=== PATIENT | male | born 1980 | race Caucasian/White ===

== ENCOUNTER 2020-12-04 16:46 | Emergency (ER) | payer OTHER ==
[~2020-12-04 16:46] MED LIST: ATIVAN1 MG PO; NAPROXEN500 MG PO; ZOLOFT100 MG PO
[2020-12-04 20:45] LABS: BASOPHIL 1.6 % (0-2); EOSINOPHIL 8.3 % (0-5); HCT 47.9 % (42.0-52.0); HGB 16.7 g/dl (13.2-18.0); MCH 34.4 pg (25.0-31.0); MCHC 34.9 g/dL (32.0-36.0); MCV 98.6 fL (78.0-100.0); MONOCYTE 4.8 % (0-12); MPV 8.9 fL (6.0-9.5); NEUTROPHIL 51.1 % (41-80); NRBC 0; PLT 332 K/uL (150-400); RBC 4.86 M/uL (4.70-6.00); RDW 11.9 % (11.5-14.0); WBC 6.4 K/uL (4.0-10.5)
[2020-12-04 20:52] LABS: MONOSPOT (MONONUCLEOSIS) NEGATIVE (NEGATIVE)
[2020-12-04 21:11] LABS: ALBUMIN 4.2 g/dL (3.4-5.0); BILIRUBIN - TOTAL 0.2 mg/dL (0.2-1.0); BUN/CREAT RATIO (CALC) 11.1 RATIO; CREATININE 0.81 mg/dL (0.67-1.17); GLOBULIN (CALCULATION) 3.5 g/dL; POTASSIUM 3.9 mmol/L (3.5-5.1); TOTAL PROTEIN 7.7 g/dL (6.4-8.2)
[2020-12-04 21:22] LABS: CORONAVIRUS 2019 SARS-COV-2 NEGATIVE (NEGATIVE); INFLUENZA A NAA NEGATIVE (NEGATIVE)
== END 2020-12-04 22:10 | disposition home or self-care (01) ==
LOC: FER 16:46
PROVIDERS: Emergency Medicine Emergency Medical Services
DX: B34.9 Viral infection, unspecified (principal); R74.01 Elevation of levels of liver transaminase levels; I49.9 Cardiac arrhythmia, unspecified; J45.909 Unspecified asthma, uncomplicated; F17.210 Nicotine dependence, cigarettes, uncomplicated; Z20.822 Contact with and (suspected) exposure to COVID-19
CPT/HCPCS: 36415; 71045; 80053; 84443; 84484; 85025; 86308; 87880; 93005; 94640; 94664; J1100; J7030; U0002

== ENCOUNTER 2020-12-14 13:32 | Emergency (ER) | payer OTHER ==
[2020-12-14 14:26] LABS: BASOPHIL 0.5 % (0-2); EOSINOPHIL 3.7 % (0-5); HCT 43.2 % (42.0-52.0); HGB 14.9 g/dl (13.2-18.0); LYMPHOCYTE 19.8 % (15-48); MCH 34.3 pg (25.0-31.0); MCHC 34.5 g/dL (32.0-36.0); MCV 99.5 fL (78.0-100.0); MONOCYTE 5.9 % (0-12); MPV 9.3 fL (6.0-9.5); NEUTROPHIL 69.7 % (41-80); NRBC 0; PLT 156 K/uL (150-400); RBC 4.34 M/uL (4.70-6.00); RDW 12.1 % (11.5-14.0); WBC 8.2 K/uL (4.0-10.5)
[2020-12-14 14:42] LABS: ALBUMIN 3.7 g/dL (3.4-5.0); BILIRUBIN - TOTAL 0.5 mg/dL (0.2-1.0); BUN/CREAT RATIO (CALC) 15.7 RATIO; CREATININE 0.7 mg/dL (0.67-1.17); GLOBULIN (CALCULATION) 3.2 g/dL; POTASSIUM 3.7 mmol/L (3.5-5.1); TOTAL PROTEIN 6.9 g/dL (6.4-8.2)
[2020-12-14] MEDS ORDERED: VENTOLIN HFA IN18 GM INH (15:48)
[2020-12-14] MEDS ORDERED: PREDNISONE 20MG20 MG PO (15:48)
== END 2020-12-14 16:59 | disposition home or self-care (01) ==
LOC: FER 13:32
PROVIDERS: Emergency Medicine
DX: J45.901 Unspecified asthma with (acute) exacerbation (principal); R00.0 Tachycardia, unspecified; F17.210 Nicotine dependence, cigarettes, uncomplicated; Z20.822 Contact with and (suspected) exposure to COVID-19
CPT/HCPCS: 36415; 36600; 71045; 80053; 82803; 84484; 85025; 93005; 94640; 94664; G0480; J2930; U0002